=== PATIENT | male | born 1950 | race Caucasian/White ===

== ENCOUNTER 2019-04-21 06:00 | Outpatient (RCR) | payer MEDICARE, OTHER, SELFPAY | END 2019-05-21 00:01 | LOC: GPT 06:00 | PROVIDERS: Family Provider Family Medicine; Visit Provider Emergency Medicine | DX: I69.30 Unspecified sequelae of cerebral infarction (principal) | CPT/HCPCS: 97110 ×8; 97112 ×6; 97116; 97164; 97530 ==

== ENCOUNTER 2019-05-22 06:00 | Outpatient (RCR) | payer MEDICARE, OTHER, SELFPAY | END 2019-06-21 23:59 | disposition home or self-care (01) | LOC: GPT 06:00 | PROVIDERS: Family Provider Family Medicine; PCP Family Medicine; Visit Provider Emergency Medicine | DX: I69.30 Unspecified sequelae of cerebral infarction (principal) | CPT/HCPCS: 97110; 97112; 97116; 97530 ==

== ENCOUNTER 2019-06-22 06:00 | Outpatient (RCR) | payer MEDICARE, SELFPAY | END 2019-07-20 23:59 | disposition home or self-care (01) | LOC: GPT 06:00 | PROVIDERS: Family Provider Family Medicine; PCP Family Medicine; Visit Provider Emergency Medicine | DX: I69.393 Ataxia following cerebral infarction (principal) | CPT/HCPCS: 97110; 97112; 97116; 97164; 97530; 97760 ==

== ENCOUNTER 2019-07-21 06:00 | Outpatient (RCR) | payer MEDICARE, SELFPAY | END 2019-08-20 23:59 | disposition home or self-care (01) | LOC: GPT 06:00 | PROVIDERS: Family Provider Family Medicine; PCP Family Medicine; Visit Provider Emergency Medicine | DX: I69.393 Ataxia following cerebral infarction (principal) | CPT/HCPCS: 97110; 97112; 97116; 97530 ==

== ENCOUNTER → 2019-07-25 10:27 | Outpatient (BNVA) | payer MEDICARE, OTHER, SELFPAY | PROVIDERS: Family Provider Family Medicine; PCP Family Medicine; Visit Provider Specialist | DX: G81.14 Spastic hemiplegia affecting left nondominant side (principal) | CPT/HCPCS: 64644; 99212; J0585 ==

== ENCOUNTER → 2019-10-17 10:58 | Outpatient (BNVA) | payer MEDICARE, OTHER, SELFPAY | PROVIDERS: Family Provider Family Medicine; PCP Family Medicine; Visit Provider Specialist | DX: G81.14 Spastic hemiplegia affecting left nondominant side (principal) | CPT/HCPCS: 64642; 99212; J0585 ==

== ENCOUNTER 2019-11-11 08:58 | Outpatient (CLI) | payer MEDICARE, OTHER, SELFPAY ==
--- NOTE | 2019-11-11 11:27 | CT_ITS ---
WS: [id number] NONCONTRAST CT OF THE LEFT HAND TECHNIQUE: Noncontrast CT of the left hand with coronal and sagittal reformatted images. CLINICAL INFORMATION: MASS COMPARISON: None. DLP: [id number] scans at [facility] use at least one of these dose optimization techniques: automat ed exposure control; mA and/or kV adjustment per patient size (includes targeted exams where dose is matched to clinical indication); or iterative reconstruction FINDINGS:Exam is somewhat limited due to positioning and beam hardening artifact. Patient unable to e xtend fingers. No evidence of dorsal subcutaneous soft tissue mass. Soft tissue edema overlying the fourth and fifth metacarpal. Subcutaneous edema. Phalanges difficult to evaluate due to positioning.. Osteopenia. Degenerative arthritis left hand and wrist. Degenerative narrowing at the distal radial u lnar joint and radiocarpal joint. CT/CT hand LT wo con* [id number] IMPRESSION: 1. Images are limited due to positioning and beam hardening artifact. 2. No evidence of dorsal soft tissue mass or lesion. Mild soft tissue edema ov erlying the fourth and fifth metacarpals. 3. No definite visualized fractures considering exam limitations. 4. 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 5. Degenerative changes involving the proximal and distal carpal row.
== END 2019-11-11 08:59 | disposition home or self-care (01) ==
LOC: RADWPI 09:06
PROVIDERS: Family Provider Family Medicine; PCP Family Medicine; Visit Provider Specialist
DX: R22.32 Localized swelling, mass and lump, left upper limb (principal); M19.042 Primary osteoarthritis, left hand
CPT/HCPCS: 73200

== ENCOUNTER → 2019-12-05 15:43 | Outpatient (BNVA) | payer MEDICARE, OTHER, SELFPAY | PROVIDERS: Family Provider Family Medicine; PCP Family Medicine; Visit Provider Internal Medicine Cardiovascular Disease | DX: I69.954 Hemiplegia and hemiparesis following unspecified cerebrovascular disease affecting left non-dominant side; E78.5 Hyperlipidemia, unspecified; I65.22 Occlusion and stenosis of left carotid artery; Q21.1 Atrial septal defect | CPT/HCPCS: 80053; 80061; 85025 ==

== ENCOUNTER → 2020-09-07 11:57 | Outpatient (BNVA) | payer MEDICARE, OTHER, SELFPAY | PROVIDERS: Family Provider Family Medicine; PCP Family Medicine; Visit Provider Specialist | DX: G40.909 Epilepsy, unspecified, not intractable, without status epilepticus; I69.954 Hemiplegia and hemiparesis following unspecified cerebrovascular disease affecting left non-dominant side; Z87.891 Personal history of nicotine dependence | CPT/HCPCS: 99215 ==

== ENCOUNTER 2020-09-15 14:43 | Outpatient (CLI) | payer MEDICARE, OTHER, SELFPAY ==
--- NOTE | 2020-09-15 15:15 | MR_ITS ---
WS: [id number] Exam: MR head wo con* [id number] Date/Time of Exam: 09/15/2020 2:55 PM Reason For Exam: R56.9 - Unspecified convulsions Comparison 03/14/2018. Again noted is extensive area of encephalomalacia on the right secondary to previous right MCA territ orial infarction. There is extensive volume loss. There is also an extensive old infarct involving th e left posterior cerebral artery territory with involvement of the temporal and occipital lobes on th e left. The cerebellum and brainstem are unremarkable. No extra-axial fluid collections are seen. The re is diffuse atrophy and microvascular ischemic change. No sign of hydrocephalus. No sign of recent infarct. No space-occupying mass. Major flow voids are unremarkable in appearance. Unremarkable orbit s and optic globes. Normal-appearing acoustic nerves. Mild mucosal thickening in the floor the right maxillary sinus. Remaining facial sinuses are clear. The mastoids are clear. MR/MR head wo con* [id number] IMPRESSION: 1. 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 This involves the temporal, parietal and frontal lobes. This is sta ble in appearance. 2. Prominent infarct involving the distribution of the left posterior cerebral artery unchanged in appearance. 3. Diffuse atrophy and microvascular ischemic change. No new infarct identified . No space-occupying mass.
== END 2020-09-15 14:44 | disposition home or self-care (01) ==
PROVIDERS: PCP Family Medicine; Visit Provider Specialist
DX: R56.9 Unspecified convulsions (principal); I63.9 Cerebral infarction, unspecified; I67.82 Cerebral ischemia; G31.9 Degenerative disease of nervous system, unspecified
CPT/HCPCS: 70551

== ENCOUNTER → 2020-09-28 12:51 | Outpatient (BNVA) | payer MEDICARE, OTHER, SELFPAY | PROVIDERS: PCP Family Medicine; Visit Provider Specialist | DX: R56.9 Unspecified convulsions (principal); Z87.891 Personal history of nicotine dependence | CPT/HCPCS: 95816 ==

== ENCOUNTER → 2021-02-19 09:11 | Outpatient (BNVA) | payer MEDICARE, OTHER, SELFPAY | PROVIDERS: PCP Family Medicine; Visit Provider Family Medicine | DX: I69.954 Hemiplegia and hemiparesis following unspecified cerebrovascular disease affecting left non-dominant side (principal); R56.9 Unspecified convulsions; E78.5 Hyperlipidemia, unspecified | CPT/HCPCS: 80053; 80061; 80177; 85025 ==

== ENCOUNTER → 2021-03-10 13:19 | Outpatient (BNVA) | payer MEDICARE, OTHER, SELFPAY | PROVIDERS: PCP Family Medicine; Visit Provider Specialist | DX: G40.909 Epilepsy, unspecified, not intractable, without status epilepticus (principal); I69.954 Hemiplegia and hemiparesis following unspecified cerebrovascular disease affecting left non-dominant side; G47.10 Hypersomnia, unspecified; Q21.1 Atrial septal defect; Z79.01 Long term (current) use of anticoagulants; Z87.891 Personal history of nicotine dependence | CPT/HCPCS: 99215 ==

== ENCOUNTER 2021-03-30 10:56 | Outpatient (CLI) | payer MEDICARE, OTHER, SELFPAY ==
[2021-03-30 11:19] VITALS: BP 181/101; PULSE 86; RESP 18; TEMP 36.7; O2SAT 97; BMI 30.9
--- NOTE | 2021-03-30 12:17 | PM.OP ---
Operative Report Date of procedure: March 30, 2021 Procedure: LOCATION: [facility] Laboratory REFERRING PROVIDER: Dr. Mcgill PREOPERATIVE DIAGNOSIS: Cryptogenic stroke POSTOPERATIVE DIAGNOSIS: same ESTIMATED BLOOD LOSS: None COMPLICATIONS: None. BRIEF HISTORY: This is a 71-year-old white [male] with a history of cryptogenic stroke, had an ICM placement on 01/05/2018. This patient had no significant arrhythmias on the implantable personnel monitor telemetry.. Device has reached end-of-life. So it was decided to explant the device. Dr. Mcgill requested for this procedure. PROCEDURE: The procedure was explained to the patient in detail with the risks and benefits. The patient understood this well and consented to proceed. The patient was brought to the [facility]. The left side of the neck and the precordial region were cleaned and draped in a sterile fashion. 1% Xylocaine was used as local anesthetic agent. An 1/3 inch long incision was made at the previous implantation scar. By blunt dissection, the personnel monitor pocket was accessed. The device was delivered from the pocket. Complete hemostasis was achieved. The skin was approximated with Steri-Strips EXPLANTED DEVICE: Reveal LINQ Model number: [id number] Serial number: [id number] Make: [employer] Pressure dressing was applied over the insertion site. The patient was transferred to the medical floor in stable condition.
--- NOTE | 2021-03-30 12:17 | W.PM.OPSUD ---
Surgery/Procedure H&P Update DATE OF PROCEDURE: March 30, 2021 DATE H&P PERFORMED: 02/16/21 H&P UPDATE INFORMATION: I have reviewed H&P completed within last 30 days, I have examined patient prior to procedure and No changes to prior documentation PREOP DIAGNOSIS: ICM ESTUARDO PRIMARY INDICATION FOR PROCEDURE: ICM ESTUARDO PLANNED PROCEDURE: Operation Date: 03/30/21 12:00 Proposed Procedures p Loop Recorder Insertion(Left) - Daniel Corbin MD
== END 2021-03-30 14:12 | disposition home or self-care (01) ==
PROVIDERS: PCP Family Medicine; Visit Provider Internal Medicine Cardiovascular Disease
PROC: (CPT 33286; principal; 2021-03-30 12:00)
DX: Z86.73 Personal history of transient ischemic attack (TIA), and cerebral infarction without residual deficits (principal)
CPT/HCPCS: 33286; C1769

== ENCOUNTER 2021-07-28 20:00 | Outpatient (CLI) | payer MEDICARE, OTHER, SELFPAY | END 2021-07-28 20:01 | disposition home or self-care (01) | LOC: SLEEP 07-29 05:10 | PROVIDERS: PCP Family Medicine; Visit Provider Specialist | DX: G47.10 Hypersomnia, unspecified (principal); G47.33 Obstructive sleep apnea (adult) (pediatric) | CPT/HCPCS: 95810 ==

== ENCOUNTER → 2022-03-25 11:33 | Outpatient (BNVA) | payer MEDICARE, OTHER, SELFPAY | PROVIDERS: PCP Family Medicine; Visit Provider Internal Medicine Cardiovascular Disease | DX: I69.954 Hemiplegia and hemiparesis following unspecified cerebrovascular disease affecting left non-dominant side (principal); I77.9 Disorder of arteries and arterioles, unspecified; Q21.12 Patent foramen ovale; E78.2 Mixed hyperlipidemia; Z87.891 Personal history of nicotine dependence | CPT/HCPCS: 99214 ==

== ENCOUNTER → 2022-05-19 08:50 | Outpatient (BNVA) | payer MEDICARE, OTHER, SELFPAY | PROVIDERS: PCP Family Medicine; Visit Provider Family Medicine | DX: I69.954 Hemiplegia and hemiparesis following unspecified cerebrovascular disease affecting left non-dominant side (principal); E78.5 Hyperlipidemia, unspecified; E78.2 Mixed hyperlipidemia | CPT/HCPCS: 80053; 80061; 85025 ==